=== PATIENT | female | born 1970 ===

== ENCOUNTER 2016-06-29 20:05 | Emergency (ER) | payer SELFPAY ==
[2016-06-29] MEDS ORDERED: DAILY VITAMIN1 EAC3 PO (20:18)
[2016-06-29] MEDS ORDERED: ESTROVEN 155 M155 MG PO (20:18)
[2016-06-29] MEDS ORDERED: EVENING PRIMRO PO (20:19)
== END 2016-06-29 22:50 ==
LOC: EDMED 20:05
DX: N63 Unspecified lump in breast (principal); N64.1 Fat necrosis of breast; F17.210 Nicotine dependence, cigarettes, uncomplicated; Z98.51 Tubal ligation status